=== PATIENT | male | born 1995 | race Caucasian/White ===

== ENCOUNTER → 2016-11-12 | Outpatient (CLI) | payer BC ==
[~2016-11-12] MED LIST: DICL-201 PO
--- NOTE | 2016-11-12 11:20 | DIAGNOSTIC IMAGING REPORT ---
ABDOMINAL ULTRASOUND, RIGHT UPPER QUADRANT HISTORY: Right upper quadrant abdominal pain. COMPARISON: None. FINDINGS: Liver morphology is normal. No hepatic lesions are identified. There is no biliary ductal dilatation. No shadowing gallstones are identified. A few tiny nonmobile echogenic foci adherent to the gallbladder wall suggests tiny polyp. There is no gallbladder wall thickening. There is no pericholecystic fluid. The pancreas is sonographically normal. There is no right hydronephrosis. IMPRESSION: 1. No gallstones or biliary ductal dilatation. 2. A few tiny gallbladder polyps. No gallbladder wall thickening. Electronically signed by: Julian Golden M.D. 11/12/2016 11:19 AM Dictated Date/Time: 11/12/2016 11:15 AM
== END | disposition home or self-care (01) ==
LOC: C.ULTR 10:45
PROVIDERS: ATTEND Physician Assistant
DX: R10.11 Right upper quadrant pain (principal); K82.4 Cholesterolosis of gallbladder

== ENCOUNTER → 2016-12-20 | Outpatient (CLI) | payer BC ==
[~2016-12-20] MED LIST changes: +SINCALIDE INJ 1.36 MCG in SODIUM CHLORIDE 0.9% 100ML 100 ML IV ONE
--- NOTE | 2016-12-20 14:52 | DIAGNOSTIC IMAGING REPORT ---
HEPATOBILIARY EF IMAGING CLINICAL HISTORY: 21 years-old Male presenting with RUQ PAIN. TECHNIQUE: Dynamic imaging of the gallbladder was initiated 65 minutes after administration of 5.4 mCi of technetium 99m Choletec. Imaging was obtained every 5 minutes over a span of 40 minutes. 1.36 mcg of sincalide was injected 5 minutes prior to the start of imaging. The gallbladder ejection fraction was calculated. COMPARISON: Correlation made to ultrasound from 11/12/2016. FINDINGS: The hepatobiliary scan shows normal filling of the gallbladder at the start of imaging. Expected activity within the bowel also noted. Gallbladder ejection fraction measured at 71% (normal greater than 50%). IMPRESSION: 1. Normal gallbladder ejection fraction. No evidence of chronic cholecystitis. Electronically signed by: Vikash Weiss 12/20/2016 2:51 PM Dictated Date/Time: 12/20/2016 2:48 PM
== END | disposition home or self-care (01) ==
LOC: C.NUCL 12:26
PROVIDERS: ATTEND Internal Medicine Gastroenterology
DX: R10.11 Right upper quadrant pain (principal)

== ENCOUNTER → 2017-01-02 | Outpatient (CLI) | payer BC ==
[~2017-01-02] MED LIST changes: -SINCALIDE INJ 1.36 MCG in SODIUM CHLORIDE 0.9% 100ML 100 ML IV ONE
--- NOTE | 2017-01-02 15:50 | DIAGNOSTIC IMAGING REPORT ---
C-SPINE ROUTINE 4 OR 5 VIEWS HISTORY: 21 years-old Male neck pain without reported trauma. COMPARISON: None available TECHNIQUE: 5 views of the cervical spine FINDINGS: There is straightening of the normal cervical lordosis. Vertebral body heights are well-maintained without compression deformity. No acute fracture, dislocation or significant degenerative changes. The odontoid process and lateral patellars of C1 are intact. No prevertebral soft tissue swelling or radiopaque foreign body. IMPRESSION: 1. No acute fracture, dislocation or significant degenerative changes. 2. Straightening of the normal cervical lordosis may be secondary to positioning or muscle spasm. The above report was generated using voice recognition software. It may contain grammatical, syntax or spelling errors. Electronically signed by: Jaswant Amos M.D. 01/02/2017 3:48 PM Dictated Date/Time: 01/02/2017 3:47 PM
== END | disposition home or self-care (01) ==
LOC: C.RAD 15:16
PROVIDERS: ATTEND Nurse Practitioner
DX: R00.0 Tachycardia, unspecified (principal); M54.2 Cervicalgia

== ENCOUNTER 2017-02-22 12:55 | Emergency (ER) | payer BC ==
[~2017-02-22] VITALS: Ht 182.9 cm; Wt 69.0 kg
[2017-02-22 13:02] VITALS: TEMP 36.7; Ht 182.9 cm; Wt 69.0 kg
[2017-02-22] MEDS ORDERED: OPTIRAY 320 IV PRN (14:00)
--- NOTE | 2017-02-22 14:07 | DIAGNOSTIC IMAGING REPORT ---
(CHEST) THORAX WITH CT DOSE: 226.91 mGy.cm HISTORY: Pain left ant/lat chest wall pain x 8 months TECHNIQUE: Multiaxial CT images of the chest were performed following the intravenous administration of contrast. A dose lowering technique was utilized adhering to the principles of ALARA. COMPARISON: None. FINDINGS: The lungs are clear. The mediastinal vascular structures are within normal limits. No mediastinal or hilar lymphadenopathy. No pleural effusion or pneumothorax. Limited views of the upper abdomen demonstrate a normal liver and spleen. IMPRESSION: No significant abnormality identified within the chest. The above report was generated using voice recognition software. It may contain grammatical, syntax or spelling errors. Electronically signed by: Eulogio Washington M.D. 02/22/2017 2:06 PM Dictated Date/Time: 02/22/2017 2:04 PM
[2017-02-22] MEDS ORDERED: DICL-201 PO (14:33)
[2017-02-22 14:43] VITALS: BP 128/68; PULSE 86; O2SAT 100
--- NOTE | 2017-02-22 16:42 | EMERGENCY ROOM VISIT NOTE ---
History First contact with patient: 13:07 Chief Complaint: RIB PAIN Stated Complaint: CHEST PAIN History of Present Illness The patient is a 21 year old white male who presents to the Emergency Room with complaints of right-sided chest pain that has been present for the last 8 months. He states it is present almost every day. He states that he has had extensive gallbladder workup without any significant findings. He has had a chest x-ray that found his thoracic spine was "straighter than normal". He denies ever having a CT scan of his chest. No trauma to the chest. He points to the rib cage as his area of discomfort. It extends from the sternum around to the posterior axillary line. It is fairly diffuse. Pain is worse with pushing on the ribs. He denies any symptoms on the right. No nausea or vomiting. No shortness of breath. No cough. No fevers or chills. He states that no one is sure what exactly is causing the discomfort. A female friend mentions that it seems to get worse when he drinks alcohol. He denies any reflux type symptoms. No heartburn. Symptoms do not get worse with spicy foods or after meals. He has tried OTC anti-inflammatories without success. Review of Systems REVIEW OF SYSTEM: HEENT: No dizziness, visual problems, hearing loss, or tinnitus. There is no difficulty swallowing and no oral lesions are present. PULMONARY: No cough, shortness of breath, sputum production or hemoptysis. CARDIOVASCULAR: No palpitations, shortness of breath or peripheral edema. GASTROINTESTINAL: No diarrhea, constipation, nausea, vomiting, or abdominal pain. GENITOURINARY: No dysuria, frequency, urgency or nocturia. NEUROLOGIC: No weakness, muscle tenderness, epilepsy or history of neurological problems. MUSCULOSKELETAL: No history of joint tenderness/swelling. No history of arthritis or arthralgias. SKIN: No rashes or lesions. PSYCHIATRIC: No history of depression or mental illness. ENDOCRINE: No history of diabetes, thyroid disorders, or abnormal hair growth. Past Medical/Surgical History Previous surgeries: None. Medical history: Unremarkable Family History Noncontributory. Social History Smoking Status: Never Smoker Smokeless Tobacco Use: No Alcohol Use: occasionally Drug Use: none Marital Status: single Housing Status: lives with roommate Occupation Status: [employer] student Current/Historical Medications Scheduled Diclofenac (Voltaren), 75 MG PO BID Physical Exam Vital Signs Date Time Temp Pulse Resp B/P (MAP) Pulse Ox O2 Delivery O2 Flow Rate FiO2 02/22/17 14:43 86 16 128/68 100 02/22/17 14:14 86 16 128/68 100 Room Air 02/22/17 13:02 36.7 97 18 131/85 99 Room Air Pain Rating (0-10): 0 Physical Exam Gen.: Well-developed, well-nourished, young white male, in no acute distress. Laying on a bed. Alert and oriented. Skin:Warm and dry with good turgor. No rashes or lesions. No ecchymosis or erythema. The patient is not diaphoretic. No abrasions. Heart: Heart RRR. No MGR. Peripheral pulses are 2+. Lungs: Lungs are clear to auscultation. No crackles rhonchi or wheezing. Good air movement. The patient is able to take a deep breath. Abdomen: Abdomen was inspected, auscultated, and palpated. Bowel sounds present x 4. Soft, epigastric discomfort to palpation. No hepato- splenomegaly. No masses noted. No rebound. No pain over McBurney's point. No CVA tenderness. Musculoskeletal: Patient has no discomfort with palpation over his cervical or thoracic vertebrae. No pain with palpation over the posterior ribs. He does get discomfort with palpation starting at the posterior axillary line, extending forward all the way to the sternum. Pain includes ribs 5 through 12. He is painful both over the ribs as well as in the intercostal spaces. No focal area of discomfort. Pain is associated with motion as well, including rotation of the torso. Neurologic: Gross sensation is intact across the chest wall and upper extremities by soft touch and is symmetric. Medical Decision & Procedures ER Provider Diagnostic Interpretation: CT scan imaging of the chest with IV contrast was obtained. This was read by radiology as entirely unremarkable. ED Course Patient was educated regarding today's findings. Conservative care measures were discussed. CT scan imaging was obtained. This was unremarkable. He has had CT imaging, radiographic imaging, and ultrasound imaging, all of which were normal. He may require follow-up with orthopedic spine or physiatry to rule out any source from his spine or nerve roots. Option of alternative medicine such as acupuncture was discussed. I will try him on a short course of Voltaren 75 mg twice a day to see if there is any improvement. Prescription was provided. Return to the ED for any acute changes. Medical Decision Possibility of pleurisy, pneumonia, rib fracture, intercostal strain, costochondritis, tumor, PE, gastritis, heartburn, and radicular pattern from nerve impingement was discussed. Medication Reconcilliation Current Medication List: was personally reviewed by me Blood Pressure Screening Patient's blood pressure: Normal blood pressure Impression Primary Impression: Left-sided chest wall pain Departure Information Dispostion Home / Self-Care Condition GOOD Prescriptions Diclofenac (Voltaren) 75 Mg Tabcr 75 MG PO BID, #14 TAB Prov: Kirt Garrido,P.A. 02/22/17 Forms WORK / SCHOOL INSTRUCTIONS, HOME CARE DOCUMENTATION FORM, IMPORTANT VISIT INFORMATION Patient Instructions My [facility] [place] [employer] Additional Instructions Practice deep breaths several times per day Follow-up with your PCP this week to discuss alternative treatments Return to the ED for any acute changes or shortness of breath Try Voltaren one tablet twice a day with food to see if your symptoms improve Gentle stretching daily
== END 2017-02-22 14:43 | disposition home or self-care (01) ==
LOC: C.EDB 12:55 → C.EDC 14:43
DX: R07.89 Other chest pain (principal)